=== PATIENT | female | born 1980 | race Caucasian/White ===

== ENCOUNTER 2017-01-11 20:19 | Emergency (ER) | payer OTHER ==
--- NOTE | 2017-01-11 20:35 | ED PDOC ---
Arrival/HPI - General Historian: Patient, Spouse - History of Present Illness Time/Duration: < week Symptom Onset: Gradual Symptom Course: Worsening Severity Level: Mild Context: Home - General Chief Complaint: GI Problem Time Seen by Provider: 01/11/17 20:35 - History of Present Illness Narrative History of Present Illness (Text): 01/11/17 21:31 36yo F with no significant PMHx here for evaluation of headache, fever, diarrhea , and right sided neck pain. Patient states that she has had a headache and fever with Tmax of 102 at home since Sunday, 3 days ago. She went to her PMD, Dr. Hilliard, and he gave her an IM medication, checked her routine labs ( patient report as unremarkable), and prescribed her a 5 day course of azithromycin. Patient states that she is currently on Day 3 on her antibiotics. She reports feeling better yesterday, however, worse today. She continues to have a fever at home and started to have 3+ episodes of diarrhea that stared today. For the diarrhea, she took 2 pills of an antibiotic she has left over from when she was in [place] (Nifuroxazide 200mg x 2 doses today). She also reports waking up with right sided neck pain which she describes as musculoskeletal in nature and reports that it is likely due to her position of sleep last night. She denies any urinary sxs. No CP/SOB. No sore throat. No cough. No congestion. No Rhinorrhea. No sick contacts. No abdominal pain, no N/V /D. No other complaints. PMD: Dr. Hilliard PMHx: denies PSHx: x2 Family Hx: Denies Social Hx: Denies Tob. Denies ETOH. Denies illicit drugs NKDA (Megan,Marco Antonio) Past Medical History - Provider Review Nursing Documentation Reviewed: Yes - Reproductive Menopause: No - Psychiatric Hx Substance Use: No - Anesthesia Hx Anesthesia: No Family/Social History - Physician Review Nursing Documentation Reviewed: Yes Family/Social History: No Known Family HX Smoking Status: Never Smoked Hx Alcohol Use: No Hx Substance Use: No Allergies/Home Meds Allergies/Adverse Reactions: Allergies No Known Allergies Allergy (Verified 01/11/17 20:29) Review of Systems - Physician Review All systems were reviewed & negative as marked: Yes - Review of Systems Constitutional: Fevers Eyes: Normal ENT: Normal. absent: Sore Throat, Rhinorrhea, Sinus Congestion Respiratory: Normal. absent: SOB, Cough, Sputum, Wheezing Cardiovascular: Normal. absent: Chest Pain, Edema, Calf Pain, OCONNELL Gastrointestinal: Normal, Diarrhea. absent: Abdominal Pain, Constipation, Nausea, Vomiting, Hematochezia, Hematemesis Genitourinary Female: Normal. absent: Dysuria, Frequency, Hematuria, Vaginal Bleeding, Vaginal Discharge Musculoskeletal: Myalgias (Right sided neck muscle pain) Skin: Normal. absent: Rash, Skin Lesions Neurological: Headache. absent: Dizziness, Focal Weakness Endocrine: Normal Psychiatric: Normal Physical Exam Vital Signs Reviewed: Yes Temperature: Febrile (100.8F oral) Blood Pressure: Normal Pulse: Regular Respiratory Rate: Normal Appearance: Positive for: Non-Toxic, Comfortable Pain Distress: Mild Mental Status: Positive for: Alert and Oriented X 3 - Systems Exam Head: Present: Atraumatic, Normocephalic. No: Tenderness, Contusion, Swelling Pupils: Present: PERRL Extroacular Muscles: Present: EOMI Conjunctiva: Present: Normal Ears: Present: Normal, NORMAL TM, Normal Canal. No: Erythema, TM Bulging, Fluid , TM Perf Mouth: Present: Moist Mucous Membranes, Normal Lips, Normal Tounge, Normal Teeth Pharnyx: Present: Normal. No: ERYTHEMA, EXUDATE, TONSILS ENLARGED, Peritonsilar Swelling, Uvular Deviation, Muffled/Hoarse Voice Nose (Internal): Present: Normal Inspection, Clear Mucous. No: Rhinorrhea Neck: Present: Normal Range of Motion, Trachea Midline, Other (Right SCM muscle spasm, tender to palpation. Full range of motion. Neurovascularly intact). No: Meningeal Signs, MIDLINE TENDERNESS, JVD Respiratory/Chest: Present: Clear to Auscultation, Good Air Exchange. No: Respiratory Distress, Accessory Muscle Use, Wheezes, Decreased Breath Sounds, Rales, Rhonchi Cardiovascular: Present: Regular Rate and Rhythm, Normal S1, S2. No: Murmurs Abdomen: No: Tenderness, Distention, Peritoneal Signs, Rebound, Guarding Back: Present: Normal Inspection. No: CVA Tenderness, Midline Tenderness, Paraspinal Tenderness Upper Extremity: Present: Normal Inspection, Normal ROM, NORMAL PULSES. No: Edema Lower Extremity: Present: Normal Inspection, NORMAL PULSES. No: Edema, CALF TENDERNESS Neurological: Present: GCS=15 Skin: Present: Warm, Dry, Normal Color Psychiatric: Present: Alert, Oriented x 3 Vital Signs Temp Pulse Resp BP Pulse Ox 01/11/17 20:58 99 H 17 109/71 99 01/11/17 20:19 100.8 F H Medical Decision Making ED Course and Treatment: 01/11/17 21:51 36yo F her with Fever - Headaches and fever for 3 days - Has been taking Azithromycin (on Day 3 or 5) - Diarrhea which started is likely due to the above antibiotic course. Low likelihood of infectious etiology - CBC - CMP - Mg - Phos - UA - CXR - reassess and dispo 01/12/17 00:01 - Labs within normal limits - UA negative - CXR with no active disease - Discussed findings with the patient. Recommended to complete the course of Azithromycin. Stop taking the antibiotics left over from [place] (used for colitis ). Patient urged to follow up with her PMD tomorrow. Patient understands and agrees with plan. All questions and concerns addressed. (Marco Antonio Guzman) 01/12/17 01:09 Patient seen by resident and then evaluated by me and came up with plan for patient. Patient has normal physical and no meningeal signs. She is well appearing with negative cxray and ua. She has PMD follow-up. Likely non- specific viral illness. (Anabel Tse) - Lab Interpretations Lab Results: 01/11/17 22:18 01/11/17 22:18 Lab Results 01/11/17 22:18: Sodium 139, Potassium 3.9, Chloride 103, Carbon Dioxide 25, Anion Gap 15, BUN 17, Creatinine 0.8, Est GFR ( Amer) > 60, Est GFR (Non- Af Amer) > 60, Random Glucose 80, Calcium 9.1, Phosphorus 3.7, Magnesium 1.6 L, Total Bilirubin 0.4, AST 17, ALT 26, Alkaline Phosphatase 65, Total Protein 7.2 , Albumin 4.0, Globulin 3.3, Albumin/Globulin Ratio 1.2 01/11/17 22:18: WBC 3.2 L, RBC 4.66, Hgb 13.3, Hct 39.6, MCV 85.0, MCH 28.5, MCHC 33.6, RDW 14.4, Plt Count 168, MPV 10.6, Gran % 45.6 L, Lymph % (Auto) 34.5 , [place] % (Auto) 11.7 H, Eos % (Auto) 7.9 H, Baso % (Auto) 0.3, Gran # 1.44, Lymph # 1.1 L, [place] # 0.4, Eos # 0.3, Baso # 0.01 01/11/17 21:55: Urine Color Yellow, Urine Appearance Clear, Urine pH 6.0, Ur Specific [place] 1.020, Urine Protein Negative, Urine Glucose (UA) Negative, Urine Ketones Negative, Urine Blood Trace-lysed H, Urine Nitrate Negative, Urine Bilirubin Negative, Urine Urobilinogen 0.2, Ur Leukocyte Esterase Negative , Urine RBC 0 - 2, Urine WBC 0 - 2 - RAD Interpretation Radiology Orders: 01/11/17 21:08 CHEST TWO VIEWS (PA/LAT) [RAD] Stat - Medication Orders Current Medication Orders: Discontinued Medications Acetaminophen (Tylenol 325mg Tab) 975 mg PO STAT STA Stop: 01/11/17 21:10 Last Admin: 01/11/17 22:17 Dose: 975 mg - PA / TUMOR REGISTRAR / Resident Statement / has reviewed & agrees with the documentation as recorded. / has examined the patient and agrees with the treatment plan. Disposition/Present on Arrival - Present on Arrival Any Indicators Present on Arrival: No History of DVT/PE: No History of Uncontrolled Diabetes: No Urinary Catheter: No History of Decub. Ulcer: No History Surgical Site Infection Following: None - Disposition Have Diagnosis and Disposition been Completed?: Yes Disposition Time: 23:53 Patient Plan: Discharge - Disposition Diagnosis: Viral illness Disposition: HOME/ ROUTINE Patient Problems: Current Active Problems Problem Status Onset Viral illness Acute Condition: STABLE Discharge Instructions (ExitCare): Viral Syndrome (ED) Additional Instructions: 1. Follow up with your Primary Care Physician tomorrow. 2. Complete the course of antibiotics as prescribed by your doctor. 3. Stop taking the antibiotics that you have left over from [place]. 4. Stay well hydrated 5. Return to the ER with any new or concerning symptoms. Referrals: Irene Hilliard MD [Primary Care Provider] - Follow up with primary Forms: [employer] (Tunisian)
[2017-01-11 20:55] VITALS: TEMP 100.8
[2017-01-11 20:58] VITALS: O2SAT 99
[2017-01-11 22:08] LABS: URINE BILIRUBIN NEGATIVE (NEGATIVE); URINE BLOOD TRACE-LYSED (NEGATIVE); URINE GLUCOSE (UA) NEGATIVE (NEGATIVE); URINE KETONE NEGATIVE (NEGATIVE); URINE LEUKOCYTE ESTERASE NEGATIVE Leu/uL (NEGATIVE); URINE PROTEIN NEGATIVE mg/dL (<30 mg/dL); URINE UROBILINOGEN 0.2 E.U./dL (<1 E.U./dL)
[2017-01-11 22:09] LABS: URINE APPEARANCE CLEAR (CLEAR); URINE COLOR YELLOW (YELLOW)
[2017-01-11 22:20] LABS: URINE RBC 0 - 2 /hpf (0-2); URINE WBC 0 - 2 /hpf (0-6)
[2017-01-11 22:30] LABS: BASO # 0.01 K/mm3 (0.0-2.0); BASO % 0.3 % (0.0-3.0); EOS # 0.3 (0.0-0.7); EOS % 7.9 % (1.5-5.0); GRAN # 1.44 (1.4-6.5); GRAN % 45.6 % (50.0-68.0); HEMATOCRIT 39.6 % (36.0-48.0); LYMPH # 1.1 (1.2-3.4); LYMPH % 34.5 % (22.0-35.0); MEAN CORPUSCULAR HEMOGLOBIN 28.5 pg (25.0-35.0); MEAN CORPUSCULAR HGB CONC 33.6 g/dl (31.0-37.0); MEAN PLATELET VOLUME 10.6 fl (7.0-11.0); MONO # 0.4 (0.1-0.6); MONO % 11.7 % (1.0-6.0); RED CELL DISTRIBUTION WIDTH 14.4 % (11.5-14.5); WHITE BLOOD COUNT 3.2 10^3/ul (4.5-11.0)
[2017-01-11 22:39] LABS: ALB/GLOB RATIO 1.2 (1.1-1.8); ALKALINE PHOSPHATASE 65 U/L (38-133); ALT/SGPT 26 U/L (7-56); AST/SGOT 17 U/L (15-39); BILIRUBIN,TOTAL 0.4 mg/dL (0.2-1.3); BLOOD UREA NITROGEN 17 mg/dL (7-21); CALCIUM 9.1 mg/dL (8.4-10.5); CARBON DIOXIDE 25 mmol/L (21-33); CHLORIDE 103 mmol/L (95-110); GFR AFRICAN-AMERICAN > 60; GLUCOSE,RANDOM 80 mg/dL (70-110); MAGNESIUM 1.6 mg/dL (1.7-2.2); PHOSPHOROUS 3.7 mg/dL (2.5-4.5); POTASSIUM 3.9 mmol/L (3.6-5.0); SODIUM 139 mmol/L (132-148); TOTAL PROTEIN 7.2 g/dL (5.8-8.3)
[2017-01-12 01:15] VITALS: BP 105/52; PULSE 79; RESP 16
--- NOTE | 2017-01-12 08:07 | RAD ---
HISTORY: fever COMPARISON: No prior. TECHNIQUE: Chest PA and lateral FINDINGS: LUNGS: No active pulmonary disease. PLEURA: No significant pleural effusion identified. No pneumothorax apparent. CARDIOVASCULAR: Normal. OSSEOUS STRUCTURES: No significant abnormalities. VISUALIZED UPPER ABDOMEN: Normal. OTHER FINDINGS: None. IMPRESSION: No active disease.
== END 2017-01-12 01:16 | disposition home or self-care (01) ==
LOC: ED 20:19
DX: B34.9 Viral infection, unspecified (principal)

== ENCOUNTER 2017-01-14 17:28 | Emergency (ER) | payer OTHER ==
[2017-01-14 17:47] VITALS: BP 104/73; PULSE 93; RESP 18; TEMP 98.2; O2SAT 98
--- NOTE | 2017-01-14 18:11 | ED PDOC ---
Arrival/HPI - General Chief Complaint: Abnormal Skin Integrity Time Seen by Provider: 01/14/17 17:51 Historian: Patient - History of Present Illness Narrative History of Present Illness (Text): 01/14/17 18:14 A 36 year old female presents to the emergency department complaining of a pruritic rash on legs and arms that developed yesterday. Patient is unsure if related to park she visited. Patient didn't take any medications for rash. No new lotions, creams or detergents. Patient denies any fevers or any other complaints at this time. PMD: Dr. Irene Hilliard Symptom Onset: Sudden Symptom Course: Unchanged Activities at Onset: Rest Associated Symptoms (Text): none Past Medical History - Provider Review Nursing Documentation Reviewed: Yes - Infectious Disease Hx of Infectious Diseases: None - Psychiatric Hx Substance Use: No - Surgical History Hx Section: Yes (x2) - Anesthesia Hx Anesthesia: No Family/Social History - Physician Review Nursing Documentation Reviewed: Yes Family/Social History: No Known Family HX Smoking Status: Never Smoked Hx Alcohol Use: No Hx Substance Use: No Allergies/Home Meds Allergies/Adverse Reactions: Allergies No Known Allergies Allergy (Verified 01/14/17 17:47) Review of Systems - Physician Review All systems were reviewed & negative as marked: Yes - Review of Systems Constitutional: absent: Fevers Respiratory: absent: SOB Skin: Rash (pruritic rash on legs and arms) Physical Exam Vital Signs Reviewed: Yes Vital Signs Temp Pulse Resp BP Pulse Ox 01/14/17 17:45 98.2 F 93 H 18 104/73 98 Temperature: Afebrile Blood Pressure: Normal Pulse: Regular Respiratory Rate: Normal Appearance: Positive for: Well-Appearing, Non-Toxic, Comfortable Pain Distress: None Mental Status: Positive for: Alert and Oriented X 3 - Systems Exam Head: Present: Atraumatic, Normocephalic Pupils: Present: PERRL Extroacular Muscles: Present: EOMI Conjunctiva: Present: Normal Mouth: Present: Moist Mucous Membranes Neck: Present: Normal Range of Motion Respiratory/Chest: Present: Clear to Auscultation, Good Air Exchange. No: Respiratory Distress, Accessory Muscle Use Cardiovascular: Present: Regular Rate and Rhythm, Normal S1, S2. No: Murmurs Abdomen: Present: Normal Bowel Sounds. No: Tenderness, Distention, Peritoneal Signs Back: Present: Normal Inspection Upper Extremity: Present: Normal Inspection. No: Cyanosis, Edema Lower Extremity: Present: Normal Inspection. No: Edema Neurological: Present: GCS=15, CN II-XII Intact, Speech Normal Skin: Present: Rashes (maculopapular rash blanching, greater on bilateral lower extremity and less on upper extremity, minimal to torso) Psychiatric: Present: Alert, Oriented x 3, Normal Insight, Normal Concentration Medical Decision Making ED Course and Treatment: 01/14/17 18:08 Impression: A 36 year old female with pruritic rash on arms and legs. Plan: -- Bendaryl, Pepcid, Prednisone -- Reassess and disposition Prior Visits: Notes and results from previous visits were reviewed. Patient was last seen in the emergency department on 01/11/17 for evaluation of headache, fever, diarrhea and right sided neck pain. Progress Notes: 01/14/17 18:30 Patient doesn't wish to wait in emergency department for reassessment as patient needs to be home with children. Patient is requesting prescriptions. Patient is stable for discharge. Patient was instructed to follow up with physician or return if symptoms worsen or new concerning symptoms arise. 01/14/17 20:44 - Medication Orders Current Medication Orders: Discontinued Medications Diphenhydramine HCl (Benadryl) 50 mg PO STAT STA Stop: 01/14/17 17:55 Last Admin: 01/14/17 18:40 Dose: 50 mg Famotidine (Pepcid) 20 mg PO STAT STA Stop: 01/14/17 17:55 Last Admin: 01/14/17 18:40 Dose: 20 mg Prednisone (Prednisone Tab) 50 mg PO STAT STA Stop: 01/14/17 17:55 Last Admin: 01/14/17 18:40 Dose: 50 mg - Scribe Statement The provider has reviewed the documentation as recorded by the Courtney Denise Provider Scribe Attestation: All medical record entries made by the Courtney were at my direction and personally dictated by me. I have reviewed the chart and agree that the record accurately reflects my personal performance of the history, physical exam, medical decision making, and the department course for this patient. I have also personally directed, reviewed, and agree with the discharge instructions and disposition. Disposition/Present on Arrival - Present on Arrival Any Indicators Present on Arrival: No History of DVT/PE: No History of Uncontrolled Diabetes: No Urinary Catheter: No History of Decub. Ulcer: No History Surgical Site Infection Following: None - Disposition Have Diagnosis and Disposition been Completed?: Yes Diagnosis: Rash Disposition: HOME/ ROUTINE Disposition Time: 06:30 Condition: STABLE Discharge Instructions (ExitCare): Acute Rash (ED) Additional Instructions: please follow up with your doctor. return to emergency room with worsening symptoms or concerns. Prescriptions: DiphenhydrAMINE [Benadryl] 25 mg PO Q4 PRN #20 cap PRN Reason: Itching / Pruritus Famotidine [Pepcid] 20 mg PO DAILY #20 tab Prednisone 50 mg PO DAILY #5 tablet Referrals: [facility] [Outside] - Follow up with primary [facility] [place] [Outside] - Follow up with primary Irene Hilliard MD [Primary Care Provider] - Follow up with primary Luis Riley MD [Staff Provider] - Follow up with primary Forms: [employer] (Montenegrin)
== END 2017-01-14 19:00 | disposition home or self-care (01) ==
LOC: ED 17:28
DX: R21 Rash and other nonspecific skin eruption (principal)